=== PATIENT | male | born 1945 | race Caucasian/White ===

== ENCOUNTER 2017-01-06 16:49 | Observation (INO) | payer OTHER ==
[~2017-01-06] VITALS: Ht 175.3 cm; Wt 100.0 kg
[~2017-01-06 16:49] MED LIST: AMOX500T PO; ASCO500 PO; ATOR20TA42 PO; BAYE325T3 PO; CEPH500C3 PO; CINN500C7 PO; ENAL10TA7 PO; GLUCTAB PO; METO50TA11 PO; OMEP20TA PO; VITA400C70 PO
[2017-01-06 16:52] VITALS: BP 180/108; PULSE 104; RESP 24; TEMP 97.9; O2SAT 98
--- NOTE | 2017-01-06 17:55 | PD ---
HPI Chief Complaint: Dizziness Time Seen by Provider: 17:55 Travel History International Travel<30 days: No Contact w/Intl Traveler<30days: No Traveled to known affect area: No History of Present Illness HPI 71-year-old male with significant cardiac history, hypertension, A. fib with 2 different ablations, SVT, diabetes, presents to emergency department today for evaluation following an incident at work where he became hot, diaphoretic, and lightheaded. He sat down and he could not stop sweating. Patient states this typically does not happen to him. He felt his heart racing and states the sensation was similar to before when he was in A. fib prior to his ablation. He denies any recent illnesses, fever, chills. Denies any chest pain. He did not experience any shortness of breath, nausea, vomiting. He has no other symptoms reported this time. PFSH Past Medical History Hx Anticoagulant Therapy: Yes (BABY ASPIRIN AT HS) Anxiety: No Depression: Yes (MOTHER 2013) Heart Rhythm Problems: Yes (SVT) Cancer: No Cardiovascular Problems: Yes (AFIB, ABLASIONS X2) High Cholesterol: Yes Diabetes: Yes (TYPE II, METFORMIN 500MG BID, GLIPIZIDE ) Diminished Hearing: No Endocrine: Yes Gastrointestinal Disorders: Yes GERD: Yes Genitourinary: No Hypertension: Yes Immune Disorder: No Musculoskeletal: No Neurologic: No Psychiatric: No Reproductive: No Respiratory: No Immunizations Current: No Thyroid Disease: No Past Surgical History Abdominal Surgery: Yes (HERNIA AGE 14) Cardiac Surgery: Yes (ABLATION 09/04) Hysterectomy: Yes 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) Other Surgery: Yes Social History Alcohol Use: Yes (OCCASSIONAL) Tobacco Use: No Substance Use: No Allergies-Medications (Allergen,Severity, Reaction): Coded Allergies: *MDRO Multi-Drug Resistant Organism (Unverified Adverse Reaction, Unknown , 01/06/17) MRSA, scalp wound, 2013 Reported Meds & Prescriptions Reported Meds & Active Scripts Active Reported Eql Vitamin C (Ascorbic Acid) 500 Mg Tab 500 Mg PO DAILY Aspir-81 (Aspirin) 81 Mg Tabdr 81 Mg PO HS Enalapril (Enalapril Maleate) 20 Mg Tab 20 Mg PO BID Metformin (Metformin HCl) 1,000 Mg Tab 1,000 Mg PO BIDPC With meals Toprol XL (Metoprolol Succinate) 50 Mg Tab 50 Mg PO DAILY Hydrochlorothiazide 12.5 Mg Cap 12.5 Mg PO DAILY Atorvastatin (Atorvastatin Calcium) 40 Mg Tab 40 Mg PO HS Glipizide 10 Mg Tab 10 Mg PO BIDAC Take 30 minutes before a meal Omeprazole 20 Mg Tab 20 Mg PO BID Vitamin D3 (Cholecalciferol) 1,000 Unit Tab 1,000 Units PO DAILY B12 (Cyanocobalamin) 1,000 Mcg Tab 1,000 Mcg PO DAILY Review of Systems Except as stated in HPI: all other systems reviewed are Neg Physical Exam Narrative GENERAL: Well-nourished male patient, sitting in bed, in no acute distress SKIN: Focused skin assessment warm/dry. HEAD: Atraumatic. Normocephalic. EYES: Pupils equal and round. No scleral icterus. No injection or drainage. ENT: No nasal bleeding or discharge. Mucous membranes pink and moist. NECK: Trachea midline. No JVD. CARDIOVASCULAR: Rhythm and rate keep going back and forth from a normal sinus rhythm to an irregular tachycardic rhythm. No murmur appreciated. RESPIRATORY: No accessory muscle use. Clear to auscultation. Breath sounds equal bilaterally. GASTROINTESTINAL: Abdomen soft, rotund, nontender. Hepatic and splenic margins not palpable. MUSCULOSKELETAL: No obvious deformities. No clubbing. No cyanosis. No edema. NEUROLOGICAL: Awake and alert. No obvious cranial nerve deficits. Motor grossly within normal limits. Normal speech. PSYCHIATRIC: Appropriate mood and affect; insight and judgment normal. Data Data Last Documented VS Vital Signs Date Time Temp Pulse Resp B/P Pulse Ox O2 Delivery O2 Flow Rate FiO2 01/06/17 18:01 92 16 99 Nasal Cannula 2 01/06/17 16:52 97.9 180/108 Orders Electrocardiogram (01/06/17 ) Basic Metabolic Panel (Bmp) (01/06/17 17:10) Ckmb (Isoenzyme) Profile (01/06/17 17:10) Complete Blood Count With Diff (01/06/17 17:10) Magnesium (Mg) (01/06/17 17:10) Prothrombin Time / Inr (Pt) (01/06/17 17:10) Act Partial Throm Time (Ptt) (01/06/17 17:10) Troponin I (01/06/17 17:10) Chest, Single Ap (01/06/17 17:28) CKMB (01/06/17 18:00) CKMB% (01/06/17 18:00) Orthostatic Vital Signs (01/06/17 19:14) Labs Laboratory Tests Test 01/06/17 18:00 White Blood Count 6.7 TH/MM3 Red Blood Count 4.52 MIL/MM3 Hemoglobin 12.6 GM/DL Hematocrit 38.5 % Mean Corpuscular Volume 85.2 FL Mean Corpuscular Hemoglobin 27.9 PG Mean Corpuscular Hemoglobin 32.8 % Concent Red Cell Distribution Width 15.0 % Platelet Count 160 TH/MM3 Mean Platelet Volume 9.0 FL Neutrophils (%) (Auto) 55.5 % Lymphocytes (%) (Auto) 33.3 % Monocytes (%) (Auto) 7.2 % Eosinophils (%) (Auto) 3.3 % Basophils (%) (Auto) 0.7 % Neutrophils # (Auto) 3.7 TH/MM3 Lymphocytes # (Auto) 2.2 TH/MM3 Monocytes # (Auto) 0.5 TH/MM3 Eosinophils # (Auto) 0.2 TH/MM3 Basophils # (Auto) 0.0 TH/MM3 CBC Comment DIFF FINAL Differential Comment Prothrombin Time 10.7 SEC Prothromb Time International 1.0 RATIO Ratio Activated Partial 25.7 SEC Thromboplast Time Sodium Level 140 MEQ/L Potassium Level 3.6 MEQ/L Chloride Level 105 MEQ/L Carbon Dioxide Level 24.6 MEQ/L Anion Gap 10 MEQ/L Blood Urea Nitrogen 12 MG/DL Creatinine 1.11 MG/DL Estimat Glomerular Filtration 66 ML/MIN Rate Random Glucose 187 MG/DL Calcium Level 8.8 MG/DL Magnesium Level 1.6 MG/DL Total Creatine Kinase 144 U/L Creatine Kinase MB 2.8 NG/ML Troponin I 0.02 NG/ML [facility] Medical Decision Making Medical Screen Exam Complete: Yes Emergency Medical Condition: Yes Medical Record Reviewed: Yes Differential Diagnosis Syncope versus near-syncope versus electrolyte abnormality versus cardiac arrhythmia versus neurologic etiology Narrative Course 71-year-old male presents to emergency department for evaluation. Patient appears without distress. He is in no pain however his heart rate keeps transitioning from a regular normal sinus rhythm to a tachycardic irregular rhythm. Laboratory Tests Test 01/06/17 18:00 White Blood Count 6.7 TH/MM3 Red Blood Count 4.52 MIL/MM3 Hemoglobin 12.6 GM/DL Hematocrit 38.5 % Mean Corpuscular Volume 85.2 FL Mean Corpuscular Hemoglobin 27.9 PG Mean Corpuscular Hemoglobin 32.8 % Concent Red Cell Distribution Width 15.0 % Platelet Count 160 TH/MM3 Mean Platelet Volume 9.0 FL Neutrophils (%) (Auto) 55.5 % Lymphocytes (%) (Auto) 33.3 % Monocytes (%) (Auto) 7.2 % Eosinophils (%) (Auto) 3.3 % Basophils (%) (Auto) 0.7 % Neutrophils # (Auto) 3.7 TH/MM3 Lymphocytes # (Auto) 2.2 TH/MM3 Monocytes # (Auto) 0.5 TH/MM3 Eosinophils # (Auto) 0.2 TH/MM3 Basophils # (Auto) 0.0 TH/MM3 CBC Comment DIFF FINAL Differential Comment Prothrombin Time 10.7 SEC Prothromb Time International 1.0 RATIO Ratio Activated Partial 25.7 SEC Thromboplast Time Sodium Level 140 MEQ/L Potassium Level 3.6 MEQ/L Chloride Level 105 MEQ/L Carbon Dioxide Level 24.6 MEQ/L Anion Gap 10 MEQ/L Blood Urea Nitrogen 12 MG/DL Creatinine 1.11 MG/DL Estimat Glomerular Filtration 66 ML/MIN Rate Random Glucose 187 MG/DL Calcium Level 8.8 MG/DL Magnesium Level 1.6 MG/DL Total Creatine Kinase 144 U/L Creatine Kinase MB 2.8 NG/ML Troponin I 0.02 NG/ML CBC and BMP are without acute concern. Troponin is less than 0.02. I discussed the patient my attending physician who feels it is in the patient's best interest to be admitted observation for further evaluation of this event. Plan is discussed with the patient. He is in agreement with this plan of care, although he would rather go home. I again discussed this with my attending and the possibility of a holter monitor, however, due to the patient's age, cardiac history, and continued changing in his heart rhythm, it is best for him to stay. 2004 I discussed the pt with Dr. Morales who suggests contacting Dr. Jarvis. A call is placed and we are informed that Dr. Jarvis is covered by Dr. Alberts this weekend. A call has been placed to Dr. Alberts [address] Alberts. She suggests observation. She'll see the patient in the morning. Diagnosis Primary Impression: Near syncope Additional Impressions: Irregular heart rate Irregular heart rhythm Admitting Information Admitting Physician Requests: Observation Condition: Stable Gracia Chacon Jan 06, 2017 17:55
--- NOTE | 2017-01-06 18:06 | RADRPT ---
EXAM DATE/TIME: 01/06/2017 17:37 [facility] COMPARISON: CT ABDOMEN & PELVIS W CONTRAST, December 04, 2015, 21:17. CHEST SINGLE AP, January 25, 2013, 18:17. INDICATIONS : Chest pain. MEDICAL HISTORY : None. SURGICAL HISTORY : None. ENCOUNTER: Initial ACUITY: 1 day PAIN SCORE: 5/10 LOCATION: Bilateral chest FINDINGS: A single view of the chest demonstrates the lungs to be symmetrically aerated without evidence of mas s, infiltrate or effusion. The cardiomediastinal contours are unremarkable. Osseous structures are intact. CONCLUSION: 1. No acute cardiopulmonary disease. Sandip Mack MD on January 06, 2017 at 18:02 Board Certified Radiologist. This report was verified electronically.
[2017-01-06 18:31] LABS: AUTOMATED NEUTROPHIL # 3.7 TH/MM3 (1.8-7.7); BASOPHIL % 0.7 % (0.0-2.0); EOSINOPHIL # 0.2 TH/MM3 (0-0.4); EOSINOPHIL % 3.3 % (0.0-4.0); HEMATOCRIT 38.5 % (39.0-51.0); HEMO FLAGS DIFF FINAL; LYMPH % 33.3 % (9.0-44.0); LYMPHOCYTE # 2.2 TH/MM3 (1.0-4.8); MEAN CELL VOLUME 85.2 FL (80.0-100.0); MEAN CORPUSCULAR HEMOGLOBIN 27.9 PG (27.0-34.0); MEAN CORPUSCULAR HGB CONC 32.8 % (32.0-36.0); MONO % 7.2 % (0.0-8.0); NEUT % 55.5 % (16.0-70.0); PLATELET COUNT 160 TH/MM3 (150-450); RED BLOOD COUNT 4.52 MIL/MM3 (4.50-5.90); WHITE BLOOD COUNT 6.7 TH/MM3 (4.0-11.0)
[2017-01-06 18:35] LABS: APTT (PATIENT) 25.7 SEC (24.3-30.1); PROTHROMBIN TIME - PATIENT 10.7 SEC (9.8-11.6)
[2017-01-06] MEDS ORDERED: ATOR40TA16 PO (18:37)
[2017-01-06] MEDS ORDERED: OMEP20TA PO (18:37)
[2017-01-06] MEDS ORDERED: METF1000 PO (18:37)
[2017-01-06] MEDS ORDERED: ASPI81TA81 PO (18:37)
[2017-01-06] MEDS ORDERED: GLIP10TA6 PO (18:37)
[2017-01-06] MEDS ORDERED: VITA100018 PO (18:37)
[2017-01-06] MEDS ORDERED: HYDR12.57 PO (18:37)
[2017-01-06] MEDS ORDERED: CYAN1TAB24 PO (18:37)
[2017-01-06] MEDS ORDERED: [UNRECOGNIZED DRUG - CODE] PO (18:37)
[2017-01-06] MEDS ORDERED: TOPR50TA PO (18:37)
[2017-01-06] MEDS ORDERED: ENAL20TA PO (18:37)
[2017-01-06 18:56] LABS: ANION GAP 10 MEQ/L (5-15); BICARBONATE 24.6 MEQ/L (21.0-32.0); BLOOD UREA NITROGEN 12 MG/DL (7-18); CHLORIDE 105 MEQ/L (98-107); GLOMERULAR FILTRATION RATE 66 ML/MIN (>89); MAGNESIUM 1.6 MG/DL (1.5-2.5); POTASSIUM 3.6 MEQ/L (3.5-5.1); SODIUM (NA) 140 MEQ/L (136-145)
[2017-01-06 18:59] LABS: CREATINE KINASE 144 U/L (39-308)
[2017-01-06 19:12] LABS: CKMB 2.8 NG/ML (0.5-3.6)
[2017-01-06 20:10] VITALS: BP_SYST 146; BP_SYST 148; BP_SYST 163; BP_DIAS 74; BP_DIAS 88; BP_DIAS 95
[2017-01-06] MEDS ORDERED: SENNOSIDES 8.6 MG TAB PO PRN (20:30)
[2017-01-06] MEDS ORDERED: MORPHINE SULFATE 4 MG/ML INJ IV PRN (20:30)
[2017-01-06] MEDS ORDERED: BISACODYL 10 MG SUPP RECTAL PRN (20:30)
[2017-01-06] MEDS ORDERED: DEXTROSE 50% IN WATER 50 ML VIAL(D50) IV PRN (20:30)
[2017-01-06] MEDS ORDERED: ACETAMINOPHEN/HYDROcodone 325 MG/5 MG TAB PO PRN (20:30)
[2017-01-06] MEDS ORDERED: ACETAMINOPHEN 325 MG TAB PO PRN (20:30)
[2017-01-06] MEDS ORDERED: MAGNESIUM HYDROXIDE SUSP 30 ML CUP PO PRN (20:30)
[2017-01-06] MEDS ORDERED: SODIUM CHLORIDE 0.9% FLUSH 10 ML FLUSH IV FLUSH PRN (20:30)
[2017-01-06] MEDS ORDERED: ONDANSETRON HCL 4 MG/2 ML VIAL IVP PRN (20:30)
[2017-01-06] MEDS ORDERED: LACTULOSE SYRUP 20 GM/30 ML CUP PO PRN (20:30)
[2017-01-06] MEDS ORDERED: GLUCAGON 1 MG/ML VIAL OTHER PRN (20:30)
--- NOTE | 2017-01-06 20:33 | HHI.HP ---
[facility] Physician Jose A Santamaria M.D. Admission Diagnosis near syncope; arrythmia Diagnoses: (1) Near syncope Diagnosis: Principal (2) Arrhythmia Diagnosis: Principal (3) Dehydration Diagnosis: Principal (4) DM (diabetes mellitus) Diagnosis: Principal Travel History International Travel<30 Days: No Contact w/Intl Traveler <30 Da: No Traveled to Known Affected Are: No History of Present Illness This is a 71-year-old male with PMH of HTN, A. fib s/p Ablation x2, SVT, Hyperlipidemia and DM who presented to the ER with complaints of dizziness/ lightheadedness while at work with apparent near-syncopal episode. No LOC reported. Denies fever, chills, cough or chest pain. Does report palpitations similar to previous episodes of A-fib. On arrival, BP 180/108, HR 104, O2 sat E percent on RA, Afebrile. Orthostatic Vital Signs obtained and positive. While in ER, patient noted to transition between NSR and irregular tachyarrhythmia, no complaints of chest pain during that time. CBC essentially unremarkable. Chemistry essentially unremarkable except for GFR 66. CXR with no acute findings. Follows w/ Dr. Jarvis as outpatient, Dr. Alberts consulted by ER physician, recommended observation and eval in am. Review of Systems Except as stated in HPI: all other systems reviewed are Neg ROS: 14 point review of systems otherwise negative. Past Family Social History Past Medical History PMH: HTN, A. fib s/p Ablation x2, SVT, Hyperlipidemia and DM Past Surgical History PAST SURGICAL HISTORY: Hernia Repair, Cardiac Ablation, Hysterectomy Allergies: Coded Allergies: *MDRO Multi-Drug Resistant Organism (Unverified Adverse Reaction, Unknown , 01/06/17) MRSA, scalp wound, 2013 Family History PAST FAMILY HISTORY: Reviewed. No h/o DM or CAD Social History PAST SOCIAL HISTORY: Occasional alcohol. Negative for tobacco or drugs. Physical Exam Vital Signs Vital Signs Date Time Temp Pulse Resp B/P Pulse Ox O2 Delivery O2 Flow Rate FiO2 01/06/17 20:10 79 146/74 89 148/95 95 163/88 01/06/17 18:01 92 16 99 Nasal Cannula 2 01/06/17 16:52 97.9 104 24 180/108 98 Room Air Physical Exam PE: GENERAL: Pleasant middle-aged white male in no acute distress. HEENT: PERRLA, EOMI. No scleral icterus or conjunctival pallor. No lid lag or facial droop. CARDIOVASCULAR: Regular rate and rhythm. No obvious murmurs to auscultation. No chest tenderness to palpation. RESPIRATORY: No obvious rhonchi or wheezing. Clear to auscultation. Breath sounds equal bilaterally. GASTROINTESTINAL: Abdomen soft, non-tender, nondistended. BS normal. MUSCULOSKELETAL: Extremities without clubbing, cyanosis, or edema. No obvious deformities. NEUROLOGICAL: Awake, alert and oriented x4. No focal neurologic deficits. Moving both upper and lower extremities spontaneously. Laboratory Laboratory Tests Test 01/06/17 18:00 White Blood Count 6.7 Red Blood Count 4.52 Hemoglobin 12.6 Hematocrit 38.5 Mean Corpuscular Volume 85.2 Mean Corpuscular Hemoglobin 27.9 Mean Corpuscular Hemoglobin 32.8 Concent Red Cell Distribution Width 15.0 Platelet Count 160 Mean Platelet Volume 9.0 Neutrophils (%) (Auto) 55.5 Lymphocytes (%) (Auto) 33.3 Monocytes (%) (Auto) 7.2 Eosinophils (%) (Auto) 3.3 Basophils (%) (Auto) 0.7 Neutrophils # (Auto) 3.7 Lymphocytes # (Auto) 2.2 Monocytes # (Auto) 0.5 Eosinophils # (Auto) 0.2 Basophils # (Auto) 0.0 CBC Comment DIFF FINAL Differential Comment Prothrombin Time 10.7 Prothromb Time International 1.0 Ratio Activated Partial 25.7 Thromboplast Time Sodium Level 140 Potassium Level 3.6 Chloride Level 105 Carbon Dioxide Level 24.6 Anion Gap 10 Blood Urea Nitrogen 12 Creatinine 1.11 Estimat Glomerular Filtration 66 Rate Random Glucose 187 Calcium Level 8.8 Magnesium Level 1.6 Total Creatine Kinase 144 Creatine Kinase MB 2.8 Troponin I 0.02 Result Diagram: 01/06/17 1800 01/06/17 1800 Assessment and Plan Problem List: (1) Near syncope ICD Code: R55 Status: Acute (2) Arrhythmia ICD Code: I49.9 Status: Acute (3) Dehydration ICD Code: E86.0 Status: Acute (4) DM (diabetes mellitus) ICD Code: E11.9 Status: Acute Assessment and Plan A/P: 1. Near Syncope: Likely secondary to dehydration/arrhythmia, no LOC reported. Symptoms now resolved. IVF for hydration, will monitor. 2. Arrhythmia: H/o A-fib s/p Ablation x2 and h/o SVT, now w/ episodes of tachy -arrhythmia alternating w/ NSR. Pt without c/o chest pain or SOB. Initial trop negative, will check serial cardiac enzymes to eval for underlying ischemia. Follows w/ Dr. Jarvis as outpatient, Dr. Alberts consulted by ER physician, will eval in am. 3. Dehydration: GFR 66, BUN/Creatinine normal. +Orthostatic Vital Signs. IVF for hydration, repeat labs in am. 4. DM: Sliding scale w/ Accu-Cheks. Hold Metformin for now. 5. DVT Prophylaxis: SCD/Teds. 6. Social work for d/c planning as needed. 7. Case discussed w/ ER physician at length. Vero Morales MD Jan 06, 2017 20:33
[2017-01-06] MEDS: METOPROLOL TARTRATE 25 MG TAB PO SCH ×2 (21:00→22:20)
[2017-01-06] MEDS ORDERED: ASPIRIN EC 81 MG TABEC PO SCH (21:00)
[2017-01-06] MEDS: DOCUSATE SODIUM 50 MG/SENNA 8.6 MG TAB PO SCH (21:00)
[2017-01-06] MEDS ORDERED: ATORVASTATIN 40 MG TAB PO SCH (21:00)
[2017-01-06] MEDS: SODIUM CHLORIDE 0.9% FLUSH 10 ML FLUSH IV FLUSH SCH (21:58)
[2017-01-06] MEDS: SODIUM CHLOR 0.9% 1000 ML INJ 1,000 ML IV SCH (21:58)
[2017-01-06] MEDS: INSULIN ASPART SUPPLEMENTAL SCALE SQ SCH (22:01)
[2017-01-06 22:25] VITALS: BP 143/87; PULSE 91; RESP 18; TEMP 98.1; O2SAT 97
[2017-01-06 23:55] VITALS: BP 126/67; PULSE 67; RESP 18; TEMP 98.2; O2SAT 97
[2017-01-07 04:06] VITALS: BP 144/82; PULSE 77; RESP 18; TEMP 98.4; O2SAT 98
[2017-01-07] MEDS: INSULIN ASPART SUPPLEMENTAL SCALE SQ SCH ×2 (05:54→11:00)
[2017-01-07] MEDS ORDERED: MAGNESIUM SULFATE 1 GM PREMIX 100 ML IV ONE (07:30)
[2017-01-07 07:47] VITALS: BP_SYST 136; BP_SYST 137; BP_SYST 159; BP_DIAS 73; BP_DIAS 75; BP_DIAS 78; PULSE 75; RESP 18; TEMP 98; O2SAT 98
[2017-01-07 07:52] VITALS: O2SAT 97
[2017-01-07 08:02] LABS: AUTOMATED NEUTROPHIL # 3.6 TH/MM3 (1.8-7.7); BASOPHIL # 0.1 TH/MM3 (0-0.2); EOSINOPHIL # 0.2 TH/MM3 (0-0.4); EOSINOPHIL % 3.5 % (0.0-4.0); HEMATOCRIT 36.3 % (39.0-51.0); HEMO FLAGS DIFF FINAL; LYMPH % 37.6 % (9.0-44.0); LYMPHOCYTE # 2.7 TH/MM3 (1.0-4.8); MEAN CORPUSCULAR HEMOGLOBIN 28.7 PG (27.0-34.0); MEAN CORPUSCULAR HGB CONC 34.1 % (32.0-36.0); NEUT % 50.9 % (16.0-70.0); PLATELET COUNT 159 TH/MM3 (150-450); RED BLOOD COUNT 4.32 MIL/MM3 (4.50-5.90); RED CELL DISTRIBUTION WIDTH 15.1 % (11.6-17.2); WHITE BLOOD COUNT 7.1 TH/MM3 (4.0-11.0)
[2017-01-07] MEDS: METOPROLOL TARTRATE 25 MG TAB PO SCH (08:09)
[2017-01-07] MEDS: DOCUSATE SODIUM 50 MG/SENNA 8.6 MG TAB PO SCH (08:09)
[2017-01-07] MEDS: SODIUM CHLOR 0.9% 1000 ML INJ 1,000 ML IV SCH (08:10)
[2017-01-07] MEDS: SODIUM CHLORIDE 0.9% FLUSH 10 ML FLUSH IV FLUSH SCH (08:10)
[2017-01-07 08:15] LABS: ANION GAP 9 MEQ/L (5-15); AST (GOT) 22 U/L (15-37); BICARBONATE 26.5 MEQ/L (21.0-32.0); BLOOD UREA NITROGEN 15 MG/DL (7-18); CHLORIDE 105 MEQ/L (98-107); GLOMERULAR FILTRATION RATE 86 ML/MIN (>89); POTASSIUM 3.3 MEQ/L (3.5-5.1); SODIUM (NA) 140 MEQ/L (136-145)
[2017-01-07 08:20] LABS: ALKALINE PHOSPHATASE 53 U/L (45-117); ALT (GPT) 32 U/L (12-78); TOTAL BILIRUBIN ADULT 0.6 MG/DL (0.2-1.0)
[2017-01-07] MEDS ORDERED: POTASSIUM CHLORIDE 10 MEQ CONTROLLED RELEASE TAB PO ONE (08:30)
--- NOTE | 2017-01-07 08:47 | HHI.PR ---
Subjective Remarks Follow-up for arrhythmia. 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 He states that he became sweaty, dizzy, and had sensation of heart racing. He had similar symptoms with atrial fibrillation in the past. He sat down and symptoms eventually improved some. He denies any recurrent episodes overnight. He feels well at this time with no further complaints. He feels like he was drinking a lot of water. He denies passing out. Objective Vitals Vital Signs Date Time Temp Pulse Resp B/P Pulse Ox O2 Delivery O2 Flow Rate FiO2 01/07/17 07:52 97 Nasal Cannula 2.00 01/07/17 07:47 98.0 75 18 137/73 98 136/78 159/75 01/07/17 04:06 98.4 77 18 144/82 98 01/06/17 23:55 98.2 67 18 126/67 97 01/06/17 22:25 98.1 91 18 143/87 97 01/06/17 20:10 79 146/74 89 148/95 95 163/88 01/06/17 18:01 92 16 99 Nasal Cannula 2 01/06/17 16:52 97.9 104 24 180/108 98 Room Air I/O 01/06/17 01/06/17 01/06/17 01/07/17 01/07/17 01/07/17 07:00 15:00 23:00 07:00 15:00 23:00 Intake Total 120 ml 480 ml Balance 120 ml 480 ml Intake Oral 120 ml IV Total 480 ml Result Diagram: 01/07/17 0738 01/07/17 0738 Imaging Last Impressions Chest X-Ray 01/06/17 1728 Signed Impressions: Service Date/Time: Friday, January 06, 2017 17:37 - CONCLUSION: 1. No acute cardiopulmonary disease. Sandip Mack MD Objective Remarks GENERAL: Well-developed well-nourished. In no acute distress. SKIN: Warm and dry. No lesions noted. HEENT: Normocephalic. Pupils equal and round. Mucous membranes pink and moist. CARDIOVASCULAR: Regular rate and rhythm. No murmur appreciated. RESPIRATORY: No accessory muscle use. Clear to auscultation. Breath sounds equal bilaterally. GASTROINTESTINAL: Abdomen soft, non-tender, nondistended. Bowel sounds x4. MUSCULOSKELETAL: No obvious deformities. No clubbing or cyanosis. No edema. NEUROLOGICAL: Awake and alert. No focal neurological deficits. Moves upper and lower extremities spontaneously. Normal speech. PSYCHIATRIC: Appropriate mood and affect; insight and judgment normal. A/P Problem List: (1) Near syncope ICD Code: R55 Status: Acute (2) Arrhythmia ICD Code: I49.9 Status: Acute (3) Dehydration ICD Code: E86.0 Status: Resolved (4) DM (diabetes mellitus) ICD Code: E11.9 Status: Chronic Assessment and Plan 71-year-old male with PMH of HTN, A. fib s/p Ablation x2, SVT, Hyperlipidemia and DM who presented with complaints of dizziness/lightheadedness while at work with apparent near-syncopal episode Near Syncope: Suspect secondary to dehydration/arrhythmia, no LOC reported. Symptoms now resolved. IVF. Troponin negative 3. Treating arrhythmia as below. Arrhythmia: H/o A-fib s/p Ablation x2 and h/o SVT, now w/ episodes of tachy- arrhythmia alternating w/ NSR. Pt without c/o chest pain or SOB. EKG and telemetry reviewed with sinus dysrhythmia and occasional tachycardia. TSH within normal limits. Replace potassium and magnesium. Follows w/ Dr. Jarvis as outpatient, Dr. Alberts consulted by ER physician, appreciate recommendations. Monitor on telemetry. Continue metoprolol. Dehydration with renal injury: Creatinine 1.11, improved to 0.88 with IVF. Hold HCTZ and BYRON inhibitor for now. Improved. DM: Patient was not hypoglycemic at admission. Hold home glipizide and metformin for now. Sliding scale w/ Accu-Cheks. DVT Prophylaxis: SCD/Teds. Discharge Planning Follow-up cardiology recommendations. 1115 D/W Dr. Alberts. Patient cleared for discharge from cardiology perspective. BP has been well controlled. Recommended the patient hold HCTZ until follow up with PCP. Discharge home in stable condition. Shadi Haque Jan 07, 2017 08:47
[2017-01-07] MEDS ORDERED: CHOLECALCIFEROL (VIT D3) 1000 UNIT TAB PO SCH (09:00)
[2017-01-07] MEDS ORDERED: CYANOCOBALAMIN 1,000 MCG TAB PO SCH (09:00)
[2017-01-07] MEDS ORDERED: METOPROLOL TARTRATE 25 MG TAB PO ONE (09:00)
[2017-01-07] MEDS ORDERED: ASCORBIC ACID 500 MG TAB PO SCH (09:00)
[2017-01-07 12:05] VITALS: BP 162/82; PULSE 73; RESP 18; TEMP 98; O2SAT 98
--- NOTE | 2017-01-07 12:24 | EKG ---
Date Performed: 01/06/2017 Time Performed: 17:16:50 PTAGE: 71 years EKG: SINUS TACHYCARDIA WITH OCCASIONAL SUPRAVENTRICULAR PREMATURE COMPLEXES NONSPECIFIC ST & T-[address] AVE ABNORMALITY ABNORMAL RHYTHM ECG PREVIOUS TRACING : 01/29/2013 05.26 COMPARED TO THE PREVIOUS EKG SINUS TACHYCARDIA IS NEW DOCTOR: Joe Samuels Interpretating Date/Time 01/07/2017 12:20:15
--- NOTE | 2017-01-07 12:35 | MB ---
cc: MARTIN ROSS MD DATE OF CONSULTATION: 01/07/2017 REASON FOR CONSULTATION: Arrhythmia and history of atrial fibrillation. HISTORY OF PRESENT ILLNESS Mr. Degroot is a 71-year-old patient of my partner, Dr. Jarvis. He does have a history of A-fib and is status post two ablations. The patient presented to the emergency room with dizziness and lightheadedness with a near-syncopal episode. He said this felt similar to that before when he had the A-fib. In the emergency room the patient's vital signs were heart rate of 104, BP 180/108. The patient reports he did become a bit diaphoretic and felt like he was going to pass out but never did lose consciousness. There was reports of an irregular tachyarrhythmia in the emergency room and thus the patient was brought in for observation. PAST MEDICAL HISTORY: Significant for 1. Hypertension. 2. Hyperlipidemia. 3. Diabetes. 4. A-fib status post ablation. PAST SURGICAL HISTORY: 1. Hernia repair. 2. Hysterectomy. 3. Ablation. ALLERGIES: NO KNOWN DRUG ALLERGIES. SOCIAL HISTORY The patient occasionally has alcohol and does not smoke. FAMILY HISTORY Negative for CAD. REVIEW OF SYSTEMS Except for what is mentioned in the HPI all 12 systems are negative. PHYSICAL EXAMINATION: On physical examination vital signs are 98.0, 75, 18, 137/73. GENERAL: He is an obese man who is in no apparent distress. NECK: Free from JVD. LUNGS: Bilaterally clear to auscultation. CARDIOVASCULAR: He has a normal S1-S2. I do not appreciate any murmurs, rubs, or gallops. ABDOMEN: Soft. EXTREMITIES: Free from edema. Telemetry shows currently sinus rhythm at 65 beats a minute. There were no tachy events on the monitor. ECG shows sinus tachycardia with PACs. ASSESSMENT AND PLAN: Arrhythmia with history of atrial fibrillation - the patient has not had any documented recurrence of the A-fib. I suspect he was tachycardiac secondary to his dehydration. Near-syncope - the patient was encouraged to increase his fluid consumption. Vasovagal - the patient did describe some prodromal vasovagal like symptoms prior to this near syncopal episode. He was again encouraged to stay hydrated. Disposition - it is reasonable for him to be discharged home. Meagan Olsen/LORI /11:22 AM /12:33 PM
[2017-01-07] MEDS ORDERED: METOPROLOL TARTRATE 50 MG TAB PO SCH (21:00)
== END 2017-01-07 14:43 | disposition home or self-care (01) ==
LOC: NEPC 16:49 → NEDA 20:08 → NEPGCP 22:03
PROVIDERS: ADMIT Hospitalist; ATTEND Hospitalist
DX: R55 Syncope and collapse (principal); I49.9 Cardiac arrhythmia, unspecified; E86.0 Dehydration; I47.1 Supraventricular tachycardia; E11.9 Type 2 diabetes mellitus without complications; I10 Essential (primary) hypertension; I48.91 Unspecified atrial fibrillation; E78.5 Hyperlipidemia, unspecified; E78.00 Pure hypercholesterolemia, unspecified; K21.9 Gastro-esophageal reflux disease without esophagitis
CPT/HCPCS: 71010; 80048; 80053; 82550; 82552; 82948; 83735; 84443; 84484; 85025; 85610; 85730; 93005; 96361; 96365; 96372; 99285; G0378; J1815; J3475; J7030

== ENCOUNTER 2017-03-03 15:13 | Emergency (ER) | payer OTHER ==
[~2017-03-03] VITALS: Ht 175.3 cm; Wt 107.2 kg
[~2017-03-03 15:13] MED LIST changes: -AMOX500T PO; -ASCO500 PO; +ASPI81TA81 PO; -ATOR20TA42 PO; +ATOR40TA16 PO; -BAYE325T3 PO; -CEPH500C3 PO; -CINN500C7 PO; +CYAN1TAB24 PO; -ENAL10TA7 PO; +ENAL20TA PO; +GLIP10TA6 PO; -GLUCTAB PO; +METF1000 PO; -METO50TA11 PO; +TOPR50TA PO; +VITA100018 PO; -VITA400C70 PO; +[UNRECOGNIZED DRUG - CODE] PO
[2017-03-03 15:16] VITALS: PULSE 83; RESP 20; TEMP 98.4; O2SAT 96
--- NOTE | 2017-03-03 15:54 | PD ---
HPI Chief Complaint: Injury Time Seen by Provider: 15:30 Travel History International Travel<30 days: No Contact w/Intl Traveler<30days: No Traveled to known affect area: No History of Present Illness HPI 72-year-old male presents to the emergency room for evaluation of left foot pain , bruising, and swelling for the past week. 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 He thought it was just a contusion but was concerned because of the persistence of pain. Patient has been taking ibuprofen without significant relief in symptoms. He has been able to bear weight since onset. He reports pain with any pressure to the top of the foot or movement of the toes. States it is more painful to wear shoes then be barefoot. Denies paresthesias. History of diabetes. PFSH Past Medical History Hx Anticoagulant Therapy: Yes (BABY ASPIRIN AT HS) Atrial Fibrillation: Yes Anxiety: No Depression: No Heart Rhythm Problems: Yes (SVT) Cancer: No Cardiovascular Problems: Yes High Cholesterol: Yes Diabetes: Yes Patient Takes Glucophage: Yes Diminished Hearing: No Endocrine: Yes Gastrointestinal Disorders: Yes GERD: Yes Genitourinary: No Hypertension: Yes Immune Disorder: No Musculoskeletal: No Neurologic: No Psychiatric: No Reproductive: No Respiratory: No Immunizations Current: No Thyroid Disease: No Influenza Vaccination: Yes ?: Not Past Surgical History Abdominal Surgery: Yes (HERNIA AGE 14) Cardiac Surgery: Yes (ABLATION X 2) Hysterectomy: Yes 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) Other Surgery: Yes Social History Alcohol Use: Yes (RARELY ) Tobacco Use: No Substance Use: No Allergies-Medications (Allergen,Severity, Reaction): Coded Allergies: *MDRO Multi-Drug Resistant Organism (Unverified Adverse Reaction, Unknown , 03/03/17) MRSA, scalp wound, 2013 Reported Meds & Prescriptions Reported Meds & Active Scripts Active Reported Eql Vitamin C (Ascorbic Acid) 500 Mg Tab 500 Mg PO DAILY Aspir-81 (Aspirin) 81 Mg Tabdr 81 Mg PO HS Enalapril (Enalapril Maleate) 20 Mg Tab 20 Mg PO BID Metformin (Metformin HCl) 1,000 Mg Tab 1,000 Mg PO BIDPC With meals Toprol XL (Metoprolol Succinate) 50 Mg Tab 50 Mg PO DAILY Atorvastatin (Atorvastatin Calcium) 40 Mg Tab 40 Mg PO HS Glipizide 10 Mg Tab 10 Mg PO BIDAC Take 30 minutes before a meal Omeprazole 20 Mg Tab 20 Mg PO BID Vitamin D3 (Cholecalciferol) 1,000 Unit Tab 1,000 Units PO DAILY B12 (Cyanocobalamin) 1,000 Mcg Tab 1,000 Mcg PO DAILY Review of Systems Except as stated in HPI: all other systems reviewed are Neg Physical Exam Narrative GENERAL: Well-nourished, well-developed male in no acute distress. Afebrile. Ambulatory. SKIN: Focused skin assessment warm/dry. Mild ecchymosis over the left dorsal foot. HEAD: Normocephalic. EYES: No scleral icterus. No injection or drainage. NECK: Supple, trachea midline. No JVD or lymphadenopathy. CARDIOVASCULAR: Regular rate and rhythm without murmurs, gallops, or rubs. RESPIRATORY: Breath sounds equal bilaterally. No accessory muscle use. MUSCULOSKELETAL: No cyanosis. Mild 2+ pitting edema localized to the left dorsal foot. 2+ dorsalis pedis pulse. Full range of motion of the foot. Tenderness to palpation of the left dorsal foot. Data Data Last Documented VS Vital Signs Date Time Temp Pulse Resp B/P Pulse Ox O2 Delivery O2 Flow Rate FiO2 03/03/17 15:16 98.4 83 20 96 Orders Foot, Complete ([id number]) (03/03/17 ) [facility] Medical Decision Making Medical Screen Exam Complete: Yes Emergency Medical Condition: Yes Medical Record Reviewed: Yes Differential Diagnosis Contusion, hematoma, sprain, strain, fracture Narrative Course 72 year-old male presents to the emergency room for evaluation of left foot pain and swelling for the past 1 week. 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 Physical exam reveals moderate edema, ecchymosis, and tenderness to palpation of the left dorsal foot. Left lower extremity is neurovascularly intact with 2+ dorsalis pedis pulse. X-rays negative. Patient discharged with orthopedic instructions and told to follow- up with primary care physician or return for worsening symptoms. He understands and agrees to plan. Diagnosis Primary Impression: Contusion of left foot Qualified Code: S90.32XA - Contusion of left foot, initial encounter Referrals: Primary Care Physician Patient Instructions: Contusion in Adults (ED), General Instructions Additional Instructions: Take ibuprofen with food as directed, as needed for pain. Elevate and apply ice to the affected area for 20 minutes at a time, as needed for pain and swelling. Follow-up with a primary care physician. Return to the emergency room for worsening symptoms. Disposition: 01 DISCHARGE HOME Condition: Stable Rika Fernando Mar 03, 2017 15:54
--- NOTE | 2017-03-03 16:19 | RADRPT ---
EXAM DATE/TIME: 03/03/2017 15:51 [facility] COMPARISON: No previous studies available for comparison. INDICATIONS : Foot pain. MEDICAL HISTORY : None. SURGICAL HISTORY : None. ENCOUNTER: Initial ACUITY: 1 week PAIN SCORE: 7/10 LOCATION: Left foot FINDINGS: 3 views left foot. Bone alignment within normal limits. No evidence of fracture. Small osteophytes o f the great toe metatarsal pharyngeal joint. Moderate sized osteophytes of the second toe distal inte rphalangeal joint. Small osteophytes of the third toe interphalangeal joints. Small plantar calcaneal spur. Mild deformity of the fifth toe proximal phalanx suggesting old fracture. CONCLUSION: 1. No evidence of acute fracture. 2. Osteoarthritic findings most prominent at the second toe DIP joint. 3. Likely old fracture fifth toe proximal phalanx. Cristóbal Salinas MD on March 03, 2017 at 16:14 Board Certified Radiologist. This report was verified electronically.
== END 2017-03-03 16:40 | disposition home or self-care (01) ==
LOC: PHEFT 15:13
DX: S90.32XA Contusion of left foot, initial encounter (principal); W22.8XXA Striking against or struck by other objects, initial encounter
CPT/HCPCS: 73630; 99283